=== PATIENT | female | born 1970 | race Caucasian/White ===

== ENCOUNTER 2021-05-04 17:07 | Emergency (ER) | payer MEDICAID ==
[2021-05-04 17:24] VITALS: BP 125/87
--- NOTE | 2021-05-04 17:39 | ED Physician Documentation ---
History of Present Illness - Stated complaint Stated Complaint: HORSE RIDING ACCIDENT - Chief complaint Chief Complaint: General - History obtained from History obtained from: Patient - Additonal information Additional information: Yesterday about 2 PM her horse bucked her and she landed on the left side of her low back and has persistent pain there that was much worse when getting out of bed this morning with a near syncopal episode. No other injuries. Review of Systems Constitutional: reports: Reviewed and negative Eyes: reports: Reviewed and negative Ears: reports: Reviewed and negative Nose: reports: Reviewed and negative Throat: reports: Reviewed and negative Cardiac: reports: Reviewed and negative Respiratory: reports: Reviewed and negative PD PAST MEDICAL HISTORY - Present Medications Home Medications: Ambulatory Orders Medication Instructions Recorded Confirmed HYDROcod/ACETAM 5/325 [[place] 5/325] 1 - 2 tab PO Q6H PRN #15 tablet 05/04/21 - Allergies Allergies/Adverse Reactions: Allergies Allergy/AdvReac Type Severity Reaction Status Date / Time No Known Drug Allergies Allergy Verified 05/04/21 17:24 - Social History Does the pt smoke?: No Smoking Status: Never smoker PD ED PE NORMAL - Vitals Vital signs reviewed: Yes - General General: Alert and oriented X 3, No acute distress - HEENT HEENT: PERRL, EOMI - Neck Neck: Supple, no meningeal sign, No bony TTP - Abdomen Abdomen: Soft, Non tender - Back Back: Other (Focal tenderness to the left of the mid lumbar spine, no midline spinal tenderness. No tenderness of the pelvic brim or hip. She is able to bear weight on just the left leg.) - Neuro Neuro: Alert and oriented X 3, Normal speech Results - Vitals Vitals: Vital Signs - 24 hr 05/04/21 17:17 Temperature 36.9 C Heart Rate 84 Respiratory 15 Rate Blood Pressure 125/87 H O2 Saturation 99 Oxygen O2 Source Room air - Labs Labs: Laboratory Tests 05/04/21 17:43 Hgb 12.8 Hct 38.7 PD MEDICAL DECISION MAKING - ED course ED course: 51-year-old woman presents after a fall from a horse yesterday with left-sided low back pain. Suspect transverse process fracture on exam and this was corroborated on CT. She initially declined pain medication here but agreed to something to take home and was given a prepack of Vicodin. She was discharged before the formal read, but I called and spoke with her the morning of 05/05 regarding the incidental findings of disc bulges (which she was already aware of), but also the likely pelvic dermoid. She understands the need for followup with her PCP for sonography and likely gynecologic referral. I am prescribing a short course of short-acting opioid pain medication for this patient. I have reviewed the patients [employer] and no concerning findings were noted. I have discussed that the opioids are for short term therapy only, and will not be refilled from the ED. Departure - Departure Disposition: 01 Home, Self Care Clinical Impression: Lumbar transverse process fracture Qualifiers: Encounter type: initial encounter Fracture type: closed Qualified Code(s): S32.009A - Unspecified fracture of unspecified lumbar vertebra, initial encounter for closed fracture Condition: Good Record reviewed to determine appropriate education?: Yes Instructions: ED Fx Transverse Spinous Process Prescriptions: HYDROcod/ACETAM 5/325 [[place] 5/325] 1 - 2 tab PO Q6H PRN #15 tablet PRN Reason: Pain Comments: Follow-up with your doctor in a week or 2 for recheck and reevaluation. Return if worsening. I sent your prescription electronically to [facility] in [place]. I am prescribing a short course of narcotic pain medication for you. These are potentially dangerous and addictive medications that should be used carefully. These medications may constipate you. Take an atqp-dsf-aawthgq stool softener (docusate) twice daily with plenty of water while taking these medications. If you go 24 hours without a bowel movement, take zrxq-pjk-vymaopc miralax, per package instructions. Do not drink or drive while taking these medications. If you received narcotic or sedating medications while in the emergency department, do not drive for 24 hours. Store this medication in a safe, secure place and out of reach of children. It is a violation of federal law to give or sell this medication to another person or to use in a manner other than prescribed. The ED will not refill narcotic prescriptions, including prescriptions lost or stolen. To dispose of unwanted medications: 1. [facility] at [address] in [place] has a medication drop box. They accept prescription medications (in pill form) Thursday through Thursday 9:00 a.m. to 5:00 p.m. 2. [facility] [employer] accepts prescription medications (in pill form only) for disposal year round. Call for more information. 3. Contact the [facility] for the next [facility] sponsored prescription drug collection event. , [phone], or [phone]; Note that many narcotic pain relievers also contain Tylenol/acetaminophen. Please ensure that your total dose of acetaminophen from all sources does not exceed 3 g (3000 mg) per day. Discharge Date/Time: 05/04/21 18:36
[2021-05-04 17:48] LABS: HCT - HEMATOCRIT 38.7 % (37.0-47.0); HGB - HEMOGLOBIN 12.8 g/dL (12.0-16.0)
[2021-05-04] MEDS: HYDROcod/ACET 5/325 Prepack 4 PO STA (18:33)
--- NOTE | 2021-05-04 20:15 | CT Report ---
PROCEDURE: LUMBAR SPINE WO INDICATIONS: back inj TECHNIQUE: Noncontrast 3 mm thick sections acquired from the T12 level to the sacrum. Sagittal and coronal refo rmats were constructed. For radiation dose reduction, the following was used: automated exposure co ntrol, adjustment of mA and/or kV according to patient size. COMPARISON: None. FINDINGS: Image quality: Excellent. Bones: There is normal bony alignment. There is minimally displaced fractures of the left L3 and L4 transverse processes. No acute vertebral body compression fractures. No suspicious lytic or blasti c bony lesions. Central spinal caliber is of normal overall caliber. No pars defects. T12-L1: Normal in appearance. L1-L2: Normal in appearance. L2-L3: Normal in appearance. L3-L4: Mild loss of disc height and posterior disc bulge. Mild bilateral facet arthropathy. No cent ral canal or foraminal stenosis. L4-L5: Severe loss of disc height. There is diffuse posterior disc bulge. Mild bilateral facet arth ropathy. The central canal is patent. No foraminal stenosis. L5-S1: Normal in appearance. Soft tissues: No retroperitoneal masses or hematomas. Visualized aorta is normal in caliber. Parti al visualization of a large mass in pelvis measuring 7.6 x 6.9 cm. 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 IMPRESSION: 1. Minimally displaced left L3 and L4 transverse process fractures. 2. Degenerative disc disease and facet arthropathy at L3-L4 and L4-L5 as described. 3. 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 A non-emergen t gynecological ultrasound is recommended. Reviewed by: Noreen Epps MD on 05/04/2021 8:14 PM PDT Approved by: Noreen Epps MD on 05/04/2021 8:14 PM PDT Station ID: [id number]
== END 2021-05-04 18:36 | disposition home or self-care (01) ==
LOC: ED 17:07
DX: S32.038A Other fracture of third lumbar vertebra, initial encounter for closed fracture (principal); S32.048A Other fracture of fourth lumbar vertebra, initial encounter for closed fracture; V80.010A Animal-rider injured by fall from or being thrown from horse in noncollision accident, initial encounter; Y93.52 Activity, horseback riding; R93.7 Abnormal findings on diagnostic imaging of other parts of musculoskeletal system; D27.9 Benign neoplasm of unspecified ovary
CPT/HCPCS: 36415; 85014; 85018; 99284

== ENCOUNTER 2023-06-08 15:20 | Emergency (ER) | payer MEDICAID ==
[2023-06-08 15:46] VITALS: BP 133/82; O2SAT 98
[2023-06-08] MEDS ORDERED: TETANUS/DIPHTHERIA/PERTUSSIS 0.5 ML SYRINGE IM ONE (15:57)
[2023-06-08] MEDS ORDERED: LIDOCAINE-MPF 2% 5 ML VIAL SUBQ STA (15:58)
--- NOTE | 2023-06-08 16:24 | ED Physician Documentation ---
History of Present Illness - Stated complaint Stated Complaint: LT HAND INJ - Chief complaint Chief Complaint: Laceration - History obtained from History obtained from: Patient - History of Present Illness Timing: Today Pain level max: 3 Pain level now: 3 - Additonal information Additional information: 53-year-old female presents to the emergency department with a left thumb laceration. Lacerated the distal tip of the thumb with a knife while cutting squash. Unknown last tetanus shot. Patient is right-handed. No numbness or tingling. Better with pressure, nothing makes it worse. Not on blood thinners. PD PAST MEDICAL HISTORY - Past Medical History Past Medical History: No - Past Surgical History Past Surgical History: No - Present Medications Home Medications: Ambulatory Orders Medication Instructions Recorded Confirmed HYDROcod/ACETAM 5/325 [[place] 5/325] 1 - 2 tab PO Q6H PRN #15 tablet 05/04/21 - Allergies Allergies/Adverse Reactions: Allergies Allergy/AdvReac Type Severity Reaction Status Date / Time No Known Drug Allergies Allergy Verified 06/08/23 15:38 - Social History Does the pt smoke?: No Smoking Status: Never smoker Does the pt drink ETOH?: No Does the pt have substance abuse?: No - Immunizations Immunizations are current?: No - POLST Patient has POLST: No PD ED PE NORMAL - Vitals Vital signs reviewed: Yes - General General: Alert and oriented X 3, No acute distress - Derm Derm: Warm and dry - Extremities Extremities: Other (Flap laceration to the distal tip of the left thumb, approximately 1.3 cm in Circumference. No nail involvement. Neurovascular intact) - Neuro Neuro: Alert and oriented X 3 Results - Vitals Vitals: Vital Signs - 24 hr 06/08/23 15:35 Temperature 36.6 C Heart Rate 88 Respiratory 16 Rate Blood Pressure 133/82 H O2 Saturation 98 Oxygen O2 Source Room air Procedures - Laceration (location) L thumb Length in cm: 1.3 Wound type: Curved, Flap, Into subcut fat, Clean Neurovascular status: Sensory intact, Motor intact, Vascular intact Tendon involvement: Tendon intact Anesthesia: Lidocaine 1% Wound preparation: Irrigated copiously NS, Wound explored, To the base Skin layer closure: Nylon, Interrupted, Size #-0 - enter number (4) Other: Patient tolerated well, No complications, Neurovascular intact, Dressing applied, Tetanus booster given PD Medical Decision Making - ED course Complexity details: reviewed results, re-evaluated patient, considered differential, d/w patient ED course: Patient with a left thumb laceration, distal tip. Laceration repaired. Tolerated well. Tdap given. Splint applied. No bony involvement. No nail involvement. Neurovascular intact. Warnings of infection and instructions on wound care given at bedside. Also counseled on how to minimize scarring. Patient counseled regarding signs and symptoms for which I believe and urgent re-evaluation would be necessary. Patient with good understanding of and agreement to plan and is comfortable going home at this time This document was made in part using voice recognition software. While efforts are made to proofread this document, sound alike and grammatical errors may occur. Departure - Departure Disposition: 01 Home, Self Care Clinical Impression: Finger laceration Qualifiers: Encounter type: initial encounter Finger: thumb Damage to nail status: without damage Foreign body presence: without foreign body Laterality: left Qualified Code(s): S61.012A - Laceration without foreign body of left thumb without damage to nail, initial encounter Condition: Good Instructions: ED Laceration Hand Follow-Up: your,doctor in 1 week [Other] Comments: Please follow-up either here or with your doctor in about 10 days for suture removal. Please return if you worsen. Return if you notice redness, swelling or drainage from the wound. Forms: PCP List Discharge Date/Time: 06/08/23 16:42
== END 2023-06-08 16:42 | disposition home or self-care (01) ==
LOC: ED 15:20
DX: S61.012A Laceration without foreign body of left thumb without damage to nail, initial encounter (principal); W26.0XXA Contact with knife, initial encounter; Y93.G9 Activity, other involving cooking and grilling; Z23 Encounter for immunization
CPT/HCPCS: 12001; 90471; 99282

== ENCOUNTER 2023-12-08 21:14 | Outpatient (CLI) | payer BC ==
--- NOTE | 2023-12-09 17:22 | Ultrasound Report ---
PROCEDURE: Pelvic Complete INDICATIONS: OVARIAN CYST TECHNIQUE: Real-time transabdominal scanning was performed of the pelvic organs, with image documentation. COMPARISON: CT of lumbar spine dated 05/04/2021 FINDINGS: Uterus: Uterus is anteverted and normal in size at 7.1 x 3.4 x 4.3 cm. The myometrium is heterogene ous. No discrete uterine fibroid is seen. The endometrium measures 6.6 mm in combined thickness. No gross endometrial mass or fluid is seen. Ovaries: The right ovary measures 9.7 x 8.9 x 9.7 cm, with a calculated ovarian volume of 140 cc. T he left ovary measures 6.2 x 4.2 x 6 cm, with a calculated ovarian volume of 81.8 cc. Less than 12 fo llicles can be seen in each ovary. No adnexal masses are seen. 8.9 x 7.9 x 9.4 cm heterogeneously hy poechoic structure within right ovary and show no internal vascularity. 6.6 x 4.2 x 5.1 cm slightly l obulated appearing cystic structure is seen in left ovary and show no internal vascularity. Low-level internal echoes is seen. Other: No free pelvic fluid. IMPRESSION: 1. Finding may represent a 8.9 x 7.9 x 9.4 cm dermoid in right ovary as described above. This was als o noted on previous CT spine study. 2. Slightly complex appearing cyst in left ovary measures 6.6 x 4.2 x 5.1 cm in size. Sonographic fol low-up in 6-12 weeks is recommended. 3. No endometrial mass or fluid. Reviewed by: David Yepez MD on 12/09/2023 5:20 PM PDT Approved by: David Yepez MD on 12/09/2023 5:20 PM PDT Station ID: [id number]
== END 2023-12-08 21:15 | disposition home or self-care (01) ==
LOC: DI 21:14
PROVIDERS: ATTEND Nurse Practitioner Family
DX: N83.292 Other ovarian cyst, left side (principal)

== ENCOUNTER 2024-03-17 08:53 | Day surgery (SDC) | payer BC ==
[2024-03-17] MEDS: LACTATED RINGERS 1,000 ML IV ONE ×2 (09:33→11:57)
--- NOTE | 2024-03-17 10:48 | HISTORY & PHYSICAL EXAMINATION ---
Chief Complaint - Chief Complaint Chief Complaint: here for colonoscopy History of Present Illness - History Obtained From Records Reviewed: yes History obtained from: pt Exam Limitations: none - History of Present Illness HPI Comment/Other: first time colon cancer screening. no gi symptoms or fhx colon ca. no labs available History - Past Medical History Cardiovascular: reports: None Respiratory: reports: None Endocrine/Autoimmune: reports: None GI: reports: None : reports: None Psych: reports: None Musculoskeletal: reports: None MRSA Hx?: No - POLST Patient has POLST: No Meds/Allgy - Allergies Allergies/Adverse Reactions: Allergies Allergy/AdvReac Type Severity Reaction Status Date / Time No Known Drug Allergies Allergy Verified 06/08/23 15:38 Review of Systems - Other Findings Other Findings: 10 pt ros as above otherwise unremarkable Exam - Vital Signs Vital Signs: Vital Signs x48h Temp Pulse Resp BP Pulse Ox 03/17/24 09:17 36.4 C L 71 15 119/80 99 - Physical Exam General Appearance: positive: No acute distress, Alert Eyes Bilateral: positive: PERRL, EOMI ENT: positive: No signs of dehydration Neck: positive: No JVD, Trachea midline Respiratory: positive: No respiratory distress Cardiovascular: positive: Regular rate & rhythm Abdomen: positive: No distention Neurologic/Psychiatric: positive: Oriented x3 Conclusion/Plan - Problem List (1) Colon cancer screening Conclusion/Plan: plan colonoscopy. parq held and consent obtained
[2024-03-17] MEDS ORDERED: PROPOFOL 500 MG/50 ML 500 MG/50 ML VIAL ONE (11:02)
[2024-03-17] MEDS ORDERED: MIDAZOLAM 2 MG/2 ML VIAL ONE (11:02)
--- NOTE | 2024-03-17 11:15 | ANESTHESIA ---
Pre-Anesthesia VS, & Labs - Diagnosis screening - Procedure colonoscopy Vital Signs: Temp Pulse Resp BP Pulse Ox O2 Flow Rate 36.4 C L 71 15 119/80 99 03/17/24 09:17 03/17/24 09:17 03/17/24 09:17 03/17/24 09:17 03/17/24 09:17 Height: 5 ft 10 in Weight (kg): 67 kg Body Mass Index: 21.2 BMI Classification: Normal - NPO >8 hours - Is Patient ?: No Home Medications and Allergies Allergies/Adverse Reactions: Allergies Allergy/AdvReac Type Severity Reaction Status Date / Time No Known Drug Allergies Allergy Verified 06/08/23 15:38 Anes History & Medical History - Anesthetic History Anesthesia Complications: reports: No previous complications Family history of Anesthesia Complications: Denies Family history of Malignant Hyperthermia: Denies - Medical History Cardiovascular: reports: Other (hx of "fast heart beat and one of my valves gets stuck". t wore a halter monitor for 30 days, no intervention.) Pulmonary: reports: None Gastrointestinal: reports: None Urinary: reports: None Musculoskeletal: reports: None Endocrine/Autoimmune: reports: None Smoking Status: Never smoker Psychosocial: reports: Alcohol (2-3x/day) History of Cancer?: No Exam General: Alert, Oriented x3, Cooperative Dental: WNL Mouth Openin Fingerbreadth Neck Mobility: Normal Mallampati classification: I Thyromental Distance: 4-6 cm Respiratory: Lungs clear Cardiovascular: Regular rate Plan Anesthesia Type: General, Total IV Consent for Procedure(s) Verified and Reviewed: Yes Code Status: Attempt Resuscitation ASA classification: 2-Mild systemic disease Is this case an emergency?: No
[2024-03-17 12:25] VITALS: O2SAT 98
[2024-03-17 12:47] VITALS: BP 134/89
--- NOTE | 2024-03-17 14:15 | ANESTHESIA POST OP EVALUATION ---
Anesthesia Post Eval - Post Anesthesia Eval Vitals: Last Vital Signs Temp 36.4 C L 03/17/24 12:20 Pulse 68 03/17/24 12:30 Resp 16 03/17/24 12:30 BP 134/89 H 03/17/24 12:30 Pulse Ox 98 03/17/24 12:30 O2 Flow Rate CV Function Including HR & BP: Stable Pain Control: Satisfactory Nausea & Vomiting: Negative Mental Status: Baseline Respiratory Status: Airway Patent Hydration Status: Satisfactory Anesthesia Complications: None
== END 2024-03-17 08:54 | disposition home or self-care (01) ==
LOC: SDS 08:53
PROVIDERS: ATTEND Surgery
PROC: 0DBL8ZZ Excision of Transverse Colon, Via Natural or Artificial Opening Endoscopic (ICD-10-PCS; 2024-03-17)
PROC: 0DBN8ZZ Excision of Sigmoid Colon, Via Natural or Artificial Opening Endoscopic (ICD-10-PCS; principal; 2024-03-17 10:00)
DX: Z12.11 Encounter for screening for malignant neoplasm of colon (principal); D12.3 Benign neoplasm of transverse colon; K63.5 Polyp of colon; K57.30 Diverticulosis of large intestine without perforation or abscess without bleeding
CPT/HCPCS: 45380; J7120